=== PATIENT | male | born 1940 | race Caucasian/White ===

== ENCOUNTER 2017-08-20 05:15 | Emergency (ER) | payer MEDICARE ==
[2017-08-20 05:24] VITALS: BP 132/64
--- NOTE | 2017-08-20 06:53 | ED ---
Clayton Hartman Gabriel, scribed for Devyn Villafana MD on 08/20/17 at 0554 . Abdominal Pain/Male - HPI Summary HPI Summary: This patient is a 77 year old M presenting to [facility] accompanied by with a chief complaint of abd pain since earlier today. Pt states he usually gets constipated one or twice a year and take Mirilax for relief. Pt recently felt constipated 4 days ago and took a diuretic and had a diarrhea. Patient denies bloating, fever, sob, cp, and vomiting. - History of Current Complaint Chief Complaint: EDAbdPain Stated Complaint: ABD PAIN Time Seen by Provider: 08/20/17 05:44 Hx Obtained From: Patient Onset/Duration: Still Present Timing: Constant Severity Currently: None Pain Intensity: 0 Pain Scale Used: 0-10 Numeric Radiates: No Associated Signs And Symptoms: Positive: Negative - bloating, fever, sob, cp, and vomiting. - Allergies/Home Medications Allergies/Adverse Reactions: Allergies Allergy/AdvReac Type Severity Reaction Status Date / Time Ezetimibe [From Vytorin] Allergy Unknown Verified 08/20/17 05:34 Reaction Details Fenofibrate [From Tricor] Allergy Leg Cramps Verified 08/20/17 05:34 Penicillins Allergy Rash Verified 08/20/17 05:34 Simvastatin [From Vytorin] Allergy Unknown Verified 08/20/17 05:34 Reaction Details PMH/Surg Hx/FS Hx/Imm Hx Previously Healthy: No Cardiovascular History: Reports: Hx Congestive Heart Failure, Hx Hypercholesterolemia, Hx Hypertension, Hx Pacemaker/ICD - 8/10/15, Other Cardiovascular Problems/Disorders - LEFT BUNDLE BRANCH BLOCK Respiratory History: Reports: Hx Asthma - A CHILD ONLY Denies: Other Respiratory Problems/Disorders GI History: Denies: Other GI Disorders Musculoskeletal History: Reports: Hx Arthritis Denies: Other Musculoskeletal History Sensory History: Reports: Hx Cataracts - JUAN CARLOS, Hx Contacts or Glasses Denies: Hx Hearing Aid Opthamlomology History: Reports: Hx Cataracts - JUAN CARLOS, Hx Contacts or Glasses Neurological History: Denies: Other Neuro Impairments/Disorders - Surgical History Surgery Procedure, Year, and Place: JUAN CARLOS CATARACTS, 2013, [facility]UMBAR SURGERY, [facility], 2011, 2014. EAR GROWTH, [facility], 2009. DEVIATED SEPTUM, [facility],1994 Hx Anesthesia Reactions: No - Immunization History Date of Tetanus Vaccine: unk Date of Influenza Vaccine: 2017 Infectious Disease History: No Infectious Disease History: Denies: Traveled Outside the [place] in Last 30 Days - Family History Known Family History: Negative: Renal Disease - Social History Alcohol Use: Rare Alcohol Amount: 1 PER YEAR Hx Substance Use: No Substance Use Type: Reports: None Hx Tobacco Use: No Smoking Status (MU): Never Smoked Tobacco Have You Smoked in the Last Year: No Review of Systems Negative: Fever Negative: Chest Pain Negative: Shortness Of Breath Gastrointestinal: Negative - abd bloating Positive: Abdominal Pain. 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 Mucous membranes are mosit Neck: supple, non-tender Respiratory: CTA, breath sounds present Cardiovascular: RRR, pulses symmetrical Abdomen: non-tender, soft, no mass in abd Bowel: present and sounds are present Musculoskeletal: normal, strength/ROM intact Neuro: normal, sensory motor intact, A&Ox3 Rectal: Inflamed external hemorrhoid Triage Information Reviewed: Yes Vital Signs On Initial Exam: Initial Vitals Temp Pulse Resp BP Pulse Ox 97 F 88 16 132/64 98 08/20/17 05:19 08/20/17 05:19 08/20/17 05:19 08/20/17 05:19 08/20/17 05:19 Vital Signs Reviewed: Yes - [place] Coma Scale Coma Scale Total: 15 Diagnostics - Vital Signs Vital Signs Temp Pulse Resp BP Pulse Ox 08/20/17 05:19 97 F 88 16 132/64 98 - Laboratory Lab Statement: Any lab studies that have been ordered have been reviewed, and results considered in the medical decision making process. - Radiology abdomen xray Radiology Interpretation Completed By: ED Physician - constipation - Additional Comments Diagnostic Additional Comments: Bed side US reveals, abdominal aortic is 1.9cm and there is not a lot of gaseous abdomen distension. Abdominal Pain Fem Course/Dx - Course Assessment/Plan: No abdomenal pain, US negative for aaa, hard stool on rectal exam confirmed on KUB. Tx symptomatically with miralax. D/C in good condition. - Diagnoses Differential Diagnosis/HQI/PQRI: Constipation Provider Diagnoses: Constipation, acute Discharge - Discharge Plan Condition: Good Disposition: HOME Patient Education Materials: Constipation (ED) Referrals: Dav Hadley MD [Primary Care Provider] - Additional Instructions: high fiber diet. Take miralax up to 3 times daily. Exercise and massage will help. Return with fever, increased pain, new symptoms or other concerns. The documentation as recorded by the Clayton anderson Gabriel accurately reflects the service I personally performed and the decisions made by me, Devyn Villafana MD.
--- NOTE | 2017-08-20 08:23 | RAD ---
INDICATION: No bowel movement in days. COMPARISON: There are no prior studies available for comparison. TECHNIQUE: Frontal supine films of the abdomen were obtained. FINDINGS: The small bowel and colon appear nondistended. There is a large amount of stool present throughout the colon. No significant abnormal calcifications are seen. IMPRESSION: LARGE AMOUNT RETAINED STOOL.
== END 2017-08-20 06:53 | disposition home or self-care (01) ==
LOC: ED 05:15
DX: K59.00 Constipation, unspecified (principal); I50.9 Heart failure, unspecified; E78.00 Pure hypercholesterolemia, unspecified; I10 Essential (primary) hypertension; Z95.810 Presence of automatic (implantable) cardiac defibrillator; I44.7 Left bundle-branch block, unspecified
CPT/HCPCS: 74000; 99282

== ENCOUNTER 2019-09-09 08:26 | Observation (INO) | payer MEDICARE ==
--- OUTSIDE RECORDS SUMMARY | 2019-09-09 08:41 | XMS REPORT | Continuity of Care Document ---
:1940 External Reference #:[id number] Author Name Farshad Ruiz M.D. (transmitted by agent of provider Jannie Kinney) Address [address] [place] [address] Problems Active Problems Provider Date Dilated cardiomyopathy Farshad Ruiz M.D. Onset: 05/17/2015 Left bundle branch block Farshad Ruiz M.D. Onset: 05/17/2015 Syncope Farshad Ruiz M.D. Onset: 05/17/2015 Social History Type Date Description Comments Sex Unknown Tobacco Use Start: Unknown Never Smoked Cigarettes Smoking Status Reviewed: 08/10/19 Never Smoked Cigarettes ETOH Use Denies alcohol use Tobacco Use Start: Unknown Patient has never smoked Recreational Drug Use Denies Drug Use Exercise Type/Frequency Exercises rarely Allergies, Adverse Reactions, Alerts Active Allergies Reaction Severity Comments Date Penicillin per [facility] paper chart 03/08/2014 Vytorin muscle pains per [facility] paper chart 03/08/2014 Tricor muscle pains per [facility] paper chart 03/08/2014 Medications Active Medications SIG Qnty Indications Ordering Date Provider Enalapril Maleate 1/2 tablet by 90tabs Unknown 20mg Tablets mouth b.i.d Digoxin 1 tablet by 90tabs Unknown 250mcg Tablets mouth every day Aspirin 1 tablet by Farshad Fletcher 81mg Tablets DR mouth amarjit Ruiz M.D. day Nifedipine ER 1 by mouth Unknown 30mg Tablets ER 24HR every day Metoprolol Tartrate 1 by mouth Unknown 50mg Tablets twice a day Diclofenac Sodium 1 po twice Unknown 50mg Tablets DR daily Otezla take one Unknown 30mg Tablets tablet by mouth two times a day Hydrochlorothiazide 1 by mouth Unknown 25mg Tablets every day Immunizations CPT Code Status Date Vaccine Lot # [id number] Given 07/24/2014 Influenza Virus 3Yrs & Over Vital Signs Date Vital Result Comment 08/10/2019 3:03pm Height 71.5 inches 5'11.50" Weight 192.00 lb with shoes Heart Rate 82 /min BP Systolic Sitting 110 mmHg LA BP Diastolic Sitting 70 mmHg LA BP Systolic Standing 120 mmHg LA BP Diastolic Standing 70 mmHg LA BMI (Body Mass Index) 26.4 kg/m2 Ejection Fraction NONE 06/30/2018 11:38am Height 71.5 inches 5'11.50" Weight 199.00 lb with shoes Heart Rate 88 /min BP Systolic Sitting 110 mmHg Lue lg cuff BP Diastolic Sitting 60 mmHg Lue lg cuff BP Systolic Standing 110 mmHg Lue lg cuff BP Diastolic Standing 70 mmHg Lue lg cuff Respiratory Rate 16 /min BMI (Body Mass Index) 27.4 kg/m2 Results Description No Information Available Procedures Date Code Description Status 08/10/2019 70857 Interrogation Implant Cardiovasc Monitor System Incl Completed Analysis Int 08/10/2019 29726 Icd Eval With Inerative Adjustmt Dual Lead System Completed 08/10/2019 39495 EKG Tracing & Interpretation Completed 07/08/2019 50125 Interrogation Device Eval Remote Up To 30 Days Completed Analysis,Rev,RP 07/08/2019 66739 Interrogation Device Eval Remote Up To 30 Days Completed Analysis,Rev,RP 07/08/2019 03846 Icd Eval Sing,Dual,Multi Lead Remote Recpt Transm Tech Rev Completed Tech S 07/08/2019 82400 Icd Eval Sing,Dual,Multi Lead Remote Recpt Transm Tech Rev Completed Tech S 07/08/2019 51915 Icd Check Remote Up To 90 Days Single,Dual,Multiple Lead Completed 07/08/2019 22889 Icd Check Remote Up To 90 Days Single,Dual,Multiple Lead Completed 04/08/2019 76416 Interrogation Device Eval Remote Up To 30 Days Completed Analysis,Rev,RP 04/08/2019 51135 Interrogation Device Eval Remote Up To 30 Days Completed Analysis,Rev,RP 04/08/2019 74291 Icd Eval Sing,Dual,Multi Lead Remote Recpt Transm Tech Rev Completed Tech S 04/08/2019 76021 Icd Eval Sing,Dual,Multi Lead Remote Recpt Transm Tech Rev Completed Tech S 04/08/2019 16407 Icd Check Remote Up To 90 Days Single,Dual,Multiple Lead Completed 04/08/2019 42224 Icd Check Remote Up To 90 Days Single,Dual,Multiple Lead Completed Medical Devices Description No Information Available Encounters Description No Information Available Assessments Date Code Description Provider 08/10/2019 I42.9 Cardiomyopathy, unspecified Farshad Ruiz M.D. 08/10/2019 I42.9 Cardiomyopathy, unspecified [facility] Pacer Schedule 08/10/2019 Z95.810 Presence of automatic (implantable) cardiac Farshad Ruiz M.D. defibrillator 08/10/2019 Z95.810 Presence of automatic (implantable) cardiac [facility] Pacer Schedule defibrillator 08/10/2019 I50.9 Heart failure, unspecified [facility] Pacer Schedule 07/08/2019 I42.9 Cardiomyopathy, unspecified Farshad Ruiz M.D. 07/08/2019 I42.9 Cardiomyopathy, unspecified Remote Device Checks 07/08/2019 Z95.810 Presence of automatic (implantable) cardiac Farshad Ruiz M.D. defibrillator 07/08/2019 Z95.810 Presence of automatic (implantable) cardiac Remote Device Checks defibrillator 07/08/2019 I50.9 Heart failure, unspecified Farshad Ruiz M.D. 07/08/2019 I50.9 Heart failure, unspecified Remote Device Checks 04/08/2019 Z95.810 Presence of automatic (implantable) cardiac Farshad Ruiz M.D. defibrillator 04/08/2019 Z95.810 Presence of automatic (implantable) cardiac Remote Device Checks defibrillator 04/08/2019 I42.9 Cardiomyopathy, unspecified Farshad Ruiz M.D. 04/08/2019 I42.9 Cardiomyopathy, unspecified Remote Device Checks Plan of Treatment 08/10/2019 - Farshad Ruiz M.D.I42.9 Cardiomyopathy, unspecifiedFollow up:1 yearZ95.810 Presence of automatic (implantable) cardiac defibrillator Functional Status Description No Information Available Mental Status Description No Information Available Referrals Description No Information Available
--- NOTE | 2019-09-09 08:46 | ED ---
HPI Chest Pain - HPI Summary HPI Summary: This pt is an 79 y/o male presenting to [facility] c/o chest pain since 22:00 last night. He reports he was lying in bed when his chest pain began last night. Patient describes mid sternal chest pain radiating into his throat and constant sensation of burning pain. Pt notes he was belching and vomited today. He took gaviscon and pepto bismol with no relief. He reports associated symptoms of nausea, SOB, and dizziness. Denies headache, diarrhea. Pt notes a couple of days ago he ate a spicy dinner and last night for dinner he had a sub with salami. He reports he drove from [place] with his son 3 weeks ago. Pt has felt this chest pain in the past, about 10 years ago, and went to the hospital where he received Gaviscon liquid and was placed on Nexium. His riding silks custodian is Dr. Ruiz. His last stress test was a couple of years ago. PMHx: CHF (for the past 30 years), pacemaker/defibrillator. Pt takes a baby coated aspirin every day, but did not take it today. Pt reports during his last visit to his PCP his sugar was 160 and was placed on a new medication 2 weeks ago. Allergies to Penicillin. Denies tobacco, alcohol, or drug use. Pt is retired. Medications reviewed. Allergies noted. - History of Current Complaint Chief Complaint: EDChestPainROMI Time Seen by Provider: 09/09/19 08:38 Hx Obtained From: Patient Onset/Duration: Started Hours Ago, Still Present Timing: Lasting Hours Current Severity: Moderate Pain Intensity: 6 Pain Scale Used: 0-10 Numeric Chest Pain Location: Mid Sternal Chest Pain Radiates: Yes Chest Pain Radiates To:: Other - throat Character: Burning Aggravating Factor(s): Nothing Alleviating Factor(s): Nothing Associated Signs and Symptoms: Positive: Chest Pain, Dizziness, Shortness of Breath, Vomiting. Negative: Headaches, Fever - Allergy/Home Medications Allergies/Adverse Reactions: Allergies Allergy/AdvReac Type Severity Reaction Status Date / Time ezetimibe [From Vytorin] Allergy Unknown Verified 09/09/19 08:34 Reaction Details fenofibrate [From Tricor] Allergy Leg Cramps Verified 09/09/19 08:34 Penicillins Allergy Rash Verified 09/09/19 08:34 simvastatin [From Vytorin] Allergy Unknown Verified 09/09/19 08:34 Reaction Details Home Medications: Home Medications Apremilast (NF) [Otezla (NF)] 30 mg PO BID 09/09/19 [History Confirmed 09/09/19] Diclofenac Sodium EC TAB* [Voltaren EC TAB*] 50 mg PO DAILY 09/09/19 [History Confirmed 09/09/19] Hydrochlorothiazide TAB* [Hydrodiuril TAB*] 12.5 mg PO DAILY 09/09/19 [History Confirmed 09/09/19] Metformin ER (NF) [Glucophage ER 750 MG TAB (NF)] 750 mg PO DAILY 09/09/19 [ History Confirmed 09/09/19] Metoprolol Tartrate TAB* [Lopressor TAB*] 50 mg PO BID 09/09/19 [History Confirmed 09/09/19] PMH/Surg Hx/FS Hx/Imm Hx Cardiovascular History: Reports: Hx Congestive Heart Failure, Hx Hypercholesterolemia, Hx Hypertension, Hx Pacemaker/ICD - 8/07/05, Other Cardiovascular Problems/Disorders - LEFT BUNDLE BRANCH BLOCK Respiratory History: Reports: Hx Asthma - A CHILD ONLY Denies: Other Respiratory Problems/Disorders GI History: Denies: Other GI Disorders Musculoskeletal History: Reports: Hx Arthritis Denies: Other Musculoskeletal History Sensory History: Reports: Hx Cataracts - JUAN CARLOS, Hx Contacts or Glasses Denies: Hx Hearing Aid Opthamlomology History: Reports: Hx Cataracts - JUAN CARLOS, Hx Contacts or Glasses Neurological History: Denies: Other Neuro Impairments/Disorders - Surgical History Surgical History: Yes Surgery Procedure, Year, and Place: JUAN CARLOS CATARACTS, 2013, [facility]. LUMBAR SURGERY, [facility], 2011, 2014. EAR GROWTH, [facility], 2009. DEVIATED SEPTUM, [facility],1994 Hx Anesthesia Reactions: No - Immunization History Date of Tetanus Vaccine: unk Date of Influenza Vaccine: 2017 Infectious Disease History: No Infectious Disease History: Denies: Traveled Outside the [place] in Last 30 Days - Family History Known Family History: Negative: Renal Disease - Social History Occupation: Retired Alcohol Use: Rare Alcohol Amount: 1 PER YEAR Hx Substance Use: No Substance Use Type: Reports: None Hx Tobacco Use: No Smoking Status (MU): Never Smoked Tobacco Have You Smoked in the Last Year: No Review of Systems Negative: Fever Positive: Chest Pain Positive: Shortness Of Breath Positive: Vomiting, Nausea. Negative: Diarrhea Neurological: Other - POSITIVE: dizziness Negative: Headache All Other Systems Reviewed And Are Negative: Yes Physical Exam - Summary Physical Exam Summary: Constitutional: Well-developed, Well-nourished, Alert. (-) Distressed Skin: Warm, Dry HENT: Normocephalic; Atraumatic Eyes: Conjunctiva normal Neck: Musculoskeletal ROM normal neck. (-) JVD, (-) Stridor, (-) Tracheal deviation Cardio: Rhythm regular, rate normal, Heart sounds normal; Intact distal pulses; The pedal pulses are 2+ and symmetric. Radial pulses are 2+ and symmetric. (-) Murmur Pulmonary/Chest wall: Effort normal. (-) Respiratory distress, (-) Wheezes, (-) Rales Abd: Soft, (-) tenderness, (-) Distension, (-) Guarding, (-) Rebound Musculoskeletal: (-) Edema. Good pulses bilaterally in radius, No calf tenderness, No venous cords, No pain with dorsiflexion of foot. Lymph: (-) Cervical adenopathy Neuro: Alert, Oriented x3 Psych: Mood and affect Normal Triage Information Reviewed: Yes Vital Signs On Initial Exam: Initial Vitals Temp Pulse Resp BP Pulse Ox 97.7 F 79 16 118/65 99 09/09/19 08:27 09/09/19 08:27 09/09/19 08:27 09/09/19 08:27 09/09/19 08:27 Vital Signs Reviewed: Yes Procedures - Sedation Patient Received Moderate/Deep Sedation with Procedure: No Diagnostics - Vital Signs Vital Signs Temp Pulse Resp BP Pulse Ox 09/09/19 08:27 97.7 F 79 16 118/65 99 - Laboratory Result Diagrams: 09/09/19 08:42 09/09/19 08:42 Lab Statement: Any lab studies that have been ordered have been reviewed, and results considered in the medical decision making process. - Radiology Chest XR Radiology Interpretation Completed By: Radiologist Summary of Radiographic Findings: IMPRESSION: No active cardiopulmonary disease. Dr. Gutierrez has reviewed this report. - EKG 08:30 Cardiac Rate: NL - at 78 bpm EKG Comparison: Other - worse when compared to EKG on 10/02/11. Summary of EKG Findings: EKG at 0830 shows LBBB and periodically paced beats. ST elevations discordant in V1-V4, II, III, and aVF, which appears to be worse compared to EKG on 10/02/11. Chest Pain Course/Dx - Course Course Of Treatment: Patient is here with chest pain that radiates into his neck and started last night. Patient has some shortness of breath and an episode of vomiting with this. Patient has a paced rhythm at baseline with a left bundle branch block. Patient had an EKG performed which showed worsening ST depressions compared to his only prior EKG in our system from 2011. Cardial G was called and they do not think this represents a STEMI. Patient was performed which showed a mildly elevated troponin. Patient also has worsening kidney function likely due to recent metformin starting. Patient was given aspirin and nitroglycerin. Patient did become hypotensive after nitroglycerin but responded to 1 L of IV fluids. Patient was admitted to the hospitalist. - Diagnoses Provider Diagnoses: Chest pain, Elevated troponin, BRIAN (acute kidney injury), Heart failure, Leukocytosis - Provider Notifications Discussed Care Of Patient With: Nilo Joshua Time Discussed With Above Provider: 08:58 Instructed by Provider To: Other - Discussed case with Dr. Joshua, riding silks custodian , who agrees with my EKG interpretation but does not want to activate and just do blood work. [09:26] Spoke with Dr. Joshua who reports no Heparin. He found an EKG from 1 year ago and it looks exactly the same as today. [09:31] Discussed with Dr. Navas, hospitalist, Discharge ED - Sign-Out/Discharge Documenting (check all that apply): Patient Departure - Admit to [facility] - Discharge Plan Condition: Stable Disposition: ADMITTED TO [facility] - Billing Disposition and Condition Condition: STABLE Disposition: Admitted to [facility] - Attestation Statements Document Initiated by Matt: Yes Documenting Scribe: Regla Chandler Provider For Whom Deysiibe is Documenting (Include Credential): Kota Gutierrez MD Scribe Attestation: Regla Hartman, scribed for Kota Gutierrez MD on 09/09/19 at 1407. Scribe Documentation Reviewed: Yes Provider Attestation: The documentation as recorded by the Regla anderson accurately reflects the service I personally performed and the decisions made by me, Kota Gutierrez MD Status of Scribe Document: Viewed
[2019-09-09] MEDS ORDERED: Aspirin 81 mg CHEW TAB* 81 MG TAB.CHEW PO ONE (08:47)
[2019-09-09] MEDS ORDERED: Nitroglycerin TAB 0.4 MG* 0.4 MG TAB SL ONE (08:47)
[2019-09-09] MEDS ORDERED: Al Hydrox/Mg Hydrox/Simet LIQ* 30 ML UDC PO ONE (08:48)
[2019-09-09 08:51] LABS: ABS Lymphocytes 0.7 10^3/ul (1.0-4.8); ABS Monocytes 0.8 10^3/ul (0-0.8); ABS Neutrophils 17.9 10^3/ul (1.5-7.7); Hematocrit 45 % (42-52); Hemoglobin 15.2 g/dL (14.0-18.0); Lymphocyte % 3.8 %; Mean Corpuscular HGB Conc 34 g/dL (31-36); Mean Corpuscular Hemoglobin 30 pg (27-31); Mean Corpuscular Volume 89 fL (80-94); Platelet Count 239 10^3/uL (150-450); Red Blood Count 5.03 10^6 /uL (4.18-5.48); Red Cell Distribution Width 13 % (10-15); White Blood Count 19.5 10^3/uL (3.5-10.8)
[2019-09-09 08:59] LABS: INR 1.12 (0.82-1.09)
[2019-09-09 09:09] LABS: Anion Gap 18 mmol/L (2-11); Blood Urea Nitrogen 35 mg/dL (6-24); CO2 Carbon Dioxide 23 mmol/L (22-32); Chloride 96 mmol/L (101-111); Glucose 201 mg/dL (70-100); Potassium 4.7 mmol/L (3.5-5.0); Sodium 137 mmol/L (135-145)
[2019-09-09 09:10] LABS: ALT 43 U/L (7-52); AST 28 U/L (13-39); Albumin 4.6 g/dL (3.2-5.2); Albumin/Globulin Ratio 1.4 (1-3); Alkaline Phosphatase 50 U/L (34-104); BUN/Creatinine Ratio 15.9 (8-20); EGFR Non-African American 28.9 (>60); Globulin 3.3 g/dL (2-4); Total Protein 7.9 g/dL (6.4-8.9)
[2019-09-09] MEDS ORDERED: NS 0.9% 1000 ML** 500 ML IV ONE (09:11)
[2019-09-09 09:13] LABS: Troponin I 0.03 ng/mL (<0.03)
[2019-09-09 10:25] LABS: Digoxin 1.7 ng/ml (0.8-2.0)
[2019-09-09] MEDS ORDERED: Pantoprazole TAB * 40 MG TAB PO ONE (10:46)
[2019-09-09] MEDS ORDERED: Dextrose 50% VIAL 50 ml IV PUSH PRN (10:54)
[2019-09-09] MEDS ORDERED: Ondansetron INJ* 2 MG/ML VIAL IV PRN (10:56)
[2019-09-09] MEDS ORDERED: Ondansetron ODT TAB* 4 MG SL PRN (10:56)
[2019-09-09] MEDS ORDERED: Digoxin TAB* 0.25 MG PO SCH ×2 (11:00→21:00)
[2019-09-09] MEDS ORDERED: NS 0.9% 1000 ML** 1,000 ML IV SCH (11:00)
[2019-09-09] MEDS: Metoprolol Tartrate TAB* 25 MG PO SCH ×2 (11:01→17:39)
[2019-09-09] MEDS ORDERED: Morphine 4 MG/ML VIAL (1 ml) 4 MG/ML VIAL IV ONE (11:59)
[2019-09-09 12:00] LABS: Troponin I 0.03 ng/mL (<0.03)
[2019-09-09] MEDS ORDERED: Perflutren Lipid Microsphere* 3 ML VIAL ONE (12:59)
--- NOTE | 2019-09-09 13:06 | CONSULT ---
Subjective Date of Service: 09/09/19 Interval History: DATE OF ADMISSION and consult: 09/09/19 ADMITTING PROVIDER: Elmer Navas MD. PRIMARY CARE PROVIDER: Dr. Bob Pritchard. OUTPATIENT FINANCE LECTURER: Dr. Farshad Ruiz. CC: Chest pain Reason for consult: Chest pain HISTORY OF PRESENT ILLNESS: Milton Ortez is an 79-year-old man with a history as below. Here with Amelie. His presenting symptom was present in the past about 15 years ago that resolved with gaviscon and 1 month of nexium. He never had an endoscopy. He recently re-developed GERD symptoms after not having for awhile that was resolved with nexium but stopped taking consistently because packaging stated not to use over 2 weeks. Last night he developed severe substernal burning sharp like pain that radiated to neck that was at a baseline mild but every few minutes would have spikes of severe pain. He had several episodes of vomiting. His pain continues presently and only thing that has been given so far that has helped is morphine (received multiple GI meds). Pain is worse when laying down and better when sitting up. It is not pleuritic.. He did start nsaids regularly 3 weeks ago diclofenac 50 mg daily. Was recently started on metformin. SL NTG caused BP to drop to 69/49 and given IVF. He had a URI 3 weeks ago. 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 He wears a brace. Pmshx: ICD dual chamber laminectomy ALLERGIES: PENICILLINS (severe rash), SIMVASTATIN (unknown), FENOFIBRATE (leg cramps), EZETIMIBE (unknown). FAMILY HISTORY: His father of PR at age 75. Mother of PR at age 52. SOCIAL HISTORY: No tobacco use. No alcohol use. No drug use. Retired farming and plumbing. Medications Active Medications: Aspirin (Aspirin Ec Tab*) 81 mg PO DAILY MALIK Dextrose (Dextrose 50% Vial 50 Ml*) 25 ml IV PUSH .FOR FS < 60 - SS PRN PRN Reason: FS < 60 Sodium Chloride (Ns 0.9% 1000 Ml) 1,000 mls @ 100 mls/hr IV PER RATE MALIK Stop: 09/10/19 06:59 Insulin Human Lispro (Humalog*) 0 units SUBCUT [facility]; Protocol Metoprolol Tartrate (Lopressor Tab*) 25 mg PO Q8H [facility] Last Admin: 09/09/19 11:01 Dose: 25 mg Ondansetron HCl (Zofran Inj*) 4 mg IV Q6H PRN PRN Reason: NAUSEA Ondansetron HCl (Zofran Odt Tab*) 4 mg SL Q6H PRN PRN Reason: NAUSEA/VOMITING Simethicone (Mylicon Tab*) 80 mg PO [facility] Home Medications: Aspirin [Aspirin Adult Low Dose] 81 mg PO DAILY 04/09/15 [History Confirmed ] Digoxin [Digitek] 0.25 mg PO BEDTIME 04/09/15 [History Confirmed 09/09/19] Enalapril Maleate 20 mg PO DAILY 04/09/15 [History Confirmed 09/09/19] NIFEdipine [Procardia] 30 mg PO DAILY 04/09/15 [History Confirmed 09/09/19] Apremilast (NF) [Otezla (NF)] 30 mg PO BID 09/09/19 [History Confirmed 09/09/19] Diclofenac Sodium EC TAB* [Voltaren EC TAB*] 50 mg PO DAILY 09/09/19 [History Confirmed 09/09/19] Hydrochlorothiazide TAB* [Hydrodiuril TAB*] 12.5 mg PO DAILY 09/09/19 [History Confirmed 09/09/19] Metformin ER (NF) [Glucophage ER 750 MG TAB (NF)] 750 mg PO DAILY 09/09/19 [ History Confirmed 09/09/19] Metoprolol Tartrate TAB* [Lopressor TAB*] 50 mg PO BID 09/09/19 [History Confirmed 09/09/19] Review of Systems - Measurements Intake and Output: Intake and Output Last 24 Hours 09/07/19 09/08/19 09/09/19 09/10/19 06:59 06:59 06:59 06:59 Intake Total 500 Balance 500 Weight 193 lb Intake: IV Fluids 500 - Review of Systems Constitutional Symptoms: Negative: Weakness, Fatigue Dermatology: Negative: Rash, Skin Lesions HEENT: Negative: Change in Hearing, Vertigo Eyes: Negative: Change in Vision, Double Vision Thyroid: Negative: Cold Intolerance, Heat Intolerance, Palpitations, Change in Skin/ Hair Pulmonary: Negative: Cough, Sputum, Hemoptysis Cardiology: Positive: Chest Pain Negative: Palpitations, Swelling of Ankles, Peripheral Vascular Dis, Edema, Syncope, Claudication, Paroxysmal Nocturnal Dyspnea, Orthopnea Gastroenterology: Positive: Vomiting Negative: Haematemesis, Melena Genital - Urinary: Negative: Dysuria, Hematuria Musculoskeletal: Negative: Joint Pain, Joint Stiffness Endocrinology: Negative: Obesity, Diabetes, Polydipsia, Polyuria Hematologic/Lymphatic: Positive: Use of Antiplatelet Drugs Negative: Use of Anticoagulant Neurology: Positive: Hx of Stroke\TIA Negative: Change in Speech, Change in Sphincter Function, Change in Walking, Numbness\Paresthesiae, Unexplained Weakness, Hx Seizures Psychiatry: Negative: Unusual Anxiety, Suicidal Ideation Allergic/Immunologic: Negative: Hx HIV, Immunocompromise, Swollen Glands Lymph Nodes, Other Review of Systems Statement: All other review of systems negative, unless stated above. Objective Vital Signs: Temp Pulse Resp BP Pulse Ox 97.4 F 74 16 102/49 99 09/09/19 12:30 09/09/19 12:30 09/09/19 12:30 09/09/19 12:30 09/09/19 12:30 Oxygen Devices in Use Now: None Appearance: nad, pleasant Ears/Nose/Mouth/Throat: Clear Oropharnyx Neck: NL Appearance and Movements; NL JVP Respiratory: Symmetrical Chest Expansion and Respiratory Effort, Clear to Auscultation Cardiovascular: RRR, - - distant haert sounds, pacemaker left upper chest in place Abdominal: NL Sounds; No Tenderness; No Distention Extremities: No Edema Skin: No Rash or Ulcers Neurological: Alert and Oriented x 3 Laboratory Results: 09/09/19 08:42 09/09/19 08:42 INR (Anticoag Therapy) 1.12 (0.82-1.09) H 09/09/19 08:42 Total Bilirubin 0.50 mg/dL (0.2-1.0) 09/09/19 08:42 AST 28 U/L (13-39) 09/09/19 08:42 ALT 43 U/L (7-52) 09/09/19 08:42 Alkaline Phosphatase 50 U/L (34-104) 09/09/19 08:42 B-Natriuretic Peptide 209 pg/mL (<=100) H 09/09/19 08:42 Total Protein 7.9 g/dL (6.4-8.9) 09/09/19 08:42 Albumin 4.6 g/dL (3.2-5.2) 09/09/19 08:42 Globulin 3.3 g/dL (2-4) 09/09/19 08:42 Albumin/Globulin Ratio 1.4 (1-3) 09/09/19 08:42 09/09/19 09/09/19 08:42 11:05 Troponin I 0.03 H* 0.03 H* dig level 1.7 lactic acid 5.1 Diagnostic Imaging: Exam Date: 09/09/19 CHEST AP OR PORT IMPRESSION: NO ACTIVE CARDIOPULMONARY DISEASE. coronary artery disease with proximal RPDA 60% lesion, D1 branch with ostial 90 % lesion and middle was 40%. Normal left main, left circumflex and RCA. 04/09/15. Transthoracic Echocardiogram Study Date: 09/09/2019 Conclusions Summary: - Left ventricle: The cavity size is severely dilated. Wall thickness is mildly increased. Systolic function is severely reduced. The estimated ejection fraction is 10-15%. Mild diffuse hypokinesis with regional variations. - Right ventricle: The cavity size is normal. Pacer wire noted in the right ventricle. Systolic function is normal. - Ventricular septum: The interventricular septum appears dyssynchronous consistent with LBBB - Left atrium: The atrium is mildly dilated. - Mitral valve: There is trace regurgitation. Recommendations: Compared to prior echocardiogram from 05/2009 visual LVEF was 20-25% previously. 10 years later the left atrium remains only mildly dilated and trace mitral regurgitation. EKG Data: ekg this admission nsr vs. ap, lbbb morphology has looked similar to prior ekg' s from Dr. Young office Assessment/Plan Patient presents with undiagnosed chest pain. Echo shows no significant pericardial effusion. Ongoing unremitting chest pain for over 12 hours without a serial rise of troponin essentially excludes myocardial ischemia and no further evaluation for this is warranted at this time. GI related pain (which patient thinks is the cause) seems very possible at this point but not definite. Other than NSAID use, it is difficult to have a unifying diagnosis of his presenting symptom and BRIAN.. Metformin is held in setting of lactic acidosis. Once further stabilized would decrease his longstanding digoxin to 125 mcg po daily. Agree with holding all BP medications except metoprolol at this point.
[2019-09-09] MEDS ORDERED: Atorvastatin* 80 MG TAB PO ONE (13:08)
--- NOTE | 2019-09-09 13:35 | HP ---
HISTORY AND PHYSICAL: DATE OF ADMISSION: 09/09/19 ADMITTING PROVIDER: Elmer Navas MD. PRIMARY CARE PROVIDER: Dr. Bob Pritchard. OUTPATIENT SKI TECHNICIAN: Dr. Farshad Ruiz. CHIEF COMPLAINT: Chest pain radiating to the throat, nausea, vomiting, shortness of breath, and dizziness. HISTORY OF PRESENT ILLNESS: Milton Ortez is an 79-year-old male with past medical history of severe dilated cardiomyopathy for the last 30 years, psoriasis, hypertension, suspected prediabetes versus diabetes (recently being worked up), and occasional acid reflux type symptoms. The patient was in his normal state of health at 10 p.m. the night prior to admission when he developed severe pain in his substernal area that was burning, pressure-like, and sharp that radiated to his throat. He had 2 or 3 episodes of nausea and vomiting of some clear/brown fluid which may have contained some food. He was little bit dizzy, short of breath. He was up all night with similar symptoms and worse with lying down flat. There was an episode back 15 years ago when he was in [place] visiting his son which seemed similar in character and he was given a white liquid which immediately relieved the symptoms. These symptoms are more severe than that. At that time, he was on Nexium for 5 to 6 weeks and over the last few weeks, he has been taking Nexium intermittently for similar less intense symptoms. He about 3 weeks ago restarted his diclofenac 50 mg daily after a short break trialing CBD oil, which seemed to be effective initially and then wore off. This morning at [facility], he continues to have severe discomfort. Initial troponin was 0.03. He has baseline left bundle-branch block. He has evidence of acute kidney injury with creatinine of 2.2, up from 1.2 on 07/04/19. He had leukocytosis of 19.5, elevated calcium of 11.0 with correction of albumin 4.6, likely normal. Chest x-ray was normal. He was referred to hospitalist service for ACS rule out and further workup of his chest pain. He notably also had an anion gap of 18 and glucose of 201. He had recently been started on metformin on 08/16/19. He also got nitroglycerin sublingual tab and his blood pressures plummeted from 118/65 down to 69/49 and he was started on 500 cc normal saline bolus and this has rebounded to the 110s to 130s over 50s to 60s. He denies any cough, fevers, chills, abdominal pain, diarrhea. He did get a cold approximately 3 weeks ago with a cough, which has resolved about 1-1/2 to 2 weeks ago. He has been losing weight, though this was thought intentional because he has been using an extra size bike for the last 1 to 1-1/2 months, dropped from 198 to 193. He has never had an EGD before. He did try some Pepto-Bismol and Gaviscon (aluminum hydroxide/ magnesium carbonate) without any relief at all last night. He got a simethicone , aluminum hydroxide, magnesium hydroxide cocktail in the emergency room and also similarly had no relief. PAST MEDICAL HISTORY: 1. Severe cardiomyopathy, last EF that I can see documented was on his cardiac cath 04/09/15 with severe LV hypokinesis with EF of 15%. 2. He has coronary artery disease with proximal RPDA 60% lesion, D1 branch with ostial 90% lesion and middle was 40%. Normal left main, left circumflex and RCA. This was on 04/09/15. 3. Hypertension. 4. Prediabetes versus diabetes. 5. Psoriasis. 6. Intermittent GERD-like symptoms. 7. Right footdrop after 2 lumbar laminectomy surgeries. He wears a brace. MEDICATIONS: Include: 1. Digoxin 0.25 mg p.o. at bedtime. 2. Metformin 750 mg p.o. daily. 3. Hydrochlorothiazide 12.5 mg p.o. daily. 4. Otezla (apremilast) 30 mg p.o. b.i.d. 5. Metoprolol tartrate 50 mg p.o. b.i.d. 6. Aspirin 81 mg p.o. daily. 7. Enalapril 20 mg p.o. daily. 8. Diclofenac sodium 50 mg p.o. daily. 9. Nifedipine 30 mg p.o. daily. ALLERGIES: PENICILLINS (severe rash), SIMVASTATIN (unknown), FENOFIBRATE (leg cramps), EZETIMIBE (unknown). FAMILY HISTORY: His father of DC at age 75. Mother of DC at age 52. He has 3 maternal cousins all with CHF. He has no siblings. He has 1 biological and 1 adopted son, both healthy. SOCIAL HISTORY: The patient is a never smoker. No alcohol use. No drug use. 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 He desires to be a full code. His medical surrogate is Amelie Ortez, his , who is at the bedside. REVIEW OF SYSTEMS: A complete 14-point review of systems negative, except as per HPI. He denies any headache, rashes, or joint pains. PHYSICAL EXAMINATION GENERAL APPEARANCE: In no acute distress. VITAL SIGNS: Temperature 97.7, heart rate between 65 and 80, respiratory rate between 15 and 26, blood pressure 118/65; down to 66/49; now at 117/57. HEENT: Normocephalic, atraumatic. Pupils are equally round and reactive to light. Extraocular motions intact. No scleral icterus. LUNGS: Clear to auscultation bilaterally with no wheezing, rales, or rhonchi. CARDIOVASCULAR: Regular rate and rhythm. No murmurs, rubs, or gallops. ABDOMEN: Soft, nontender, slightly distended. No rebound. No guarding. No Kang's sign. EXTREMITIES: Warm, well perfused. No peripheral edema. NEURO: Cranial nerves II through XII grossly intact. SKIN: No lesions. No rashes. He is wearing a brace on his right lower leg for his footdrop. DIAGNOSTIC STUDIES/LAB DATA: Labs: White count 19.5, hemoglobin 15.2, hematocrit 45, platelets 239. INR 1.12. Sodium 137, potassium 4.7, carbon dioxide 23, BUN 35, creatinine 2.2, anion gap 18, calcium 11.0, glucose 201. Total bili 0.5, AST 20, ALT 43, alk phos 50. Troponin 0.03, BNP 209. Albumin 4.6. Digoxin 1.7. Chest x-ray demonstrated no acute cardiopulmonary process. EKG demonstrated left bundle-branch block as before. ASSESSMENT AND PLAN: Milton Ortez is an 79-year-old male with past medical history of: 1. Severe dilated cardiomyopathy, last EF approximately 15% on cath back in 2014, presenting with a severe substernal chest pain. He has both pressure- like burning and sharp that radiated to his throat, seems similar in character to his previous gastroesophageal reflux disease like sensations, but notably much more intense. He notably has recently restarted diclofenac about 3 weeks ago after a long break. His initial troponin was 0.03. He will be admitted for acute coronary syndrome rule out. He does have known coronary artery disease. His cholesterol in the past has actually been well controlled at 85 LDL and HDL 31 on 07/04/19. He is not on a statin. We will give him 80 of Lipitor now. He is status post 324 mg of aspirin and did not tolerate nitroglycerin sublingual tab, which tanked his blood pressures. Dr. Joshua was aware of the case from the emergency room provider and did not have any other recommendations after looking at the EKG. Could consider a stress test on 09/12 if the patient is still here versus outpatient. I am going to get an echocardiogram given his severe cardiomyopathy and no echo since at least 2014, which was a limited study that was just looking for pericardial effusion status post dual-chamber AICD placement, and also so that we can look for any regional wall motion abnormalities. 2. Acute kidney injury, likely in the setting of some dehydration with recent illness and increased NSAID use. He denies any problems with urination that is so frequent. Get urine sodium, urine creatinine, calculate FEUrea and FENa. Bladder scan p.r.n. especially if he is unable to void. We will follow up on the urinalysis. I am going to treat him with maintenance IV fluids 100 cc an hour of normal saline for the next 20 hours. Repeat BMP daily. He did have a recent abdominal ultrasound on 11/17/18 which was limited and did show echogenic liver consistent with hepatic steatosis. The right kidney was also seen with no hydronephrosis at that time. We could consider repeat kidney ultrasound depending on clinical course. 3. Leukocytosis with elevated white count of 19.5 with a left shift. Add on blood cultures. He has no other signs of sepsis, although his tanking of his blood pressures after the nitroglycerin is a little concerning. Awaiting on urinalysis to rule out a urinary tract infection. Hold off on any empiric antibiotics at this time. 4. Hypertension. I am going to hold his hydrochlorothiazide, enalapril, and nifedipine for now. Continue metoprolol tartrate, but switch to 25 q.8 hours instead of his 50 b.i.d. Keep a close eye on his blood pressures. 5. For his psoriasis, I am going to hold his Otezla for now as it could sometimes cause nausea and vomiting, though he has been on it for 18 months and low suspicion. 6. Also, for coronary artery disease, I am going to continue aspirin 81 mg daily. 7. In terms of suspected gastroesophageal reflux disease, we can start Protonix. Continue simethicone with each meal. He should probably have an outpatient GI consultation with consideration for EGD if symptoms are not improved with PPI therapy. Notably, he had run out of his Pepcid after taking it more often over the last few weeks in the setting of recently restarting NSAID. 8. FEN: He can eat a clear liquid diet. IV fluids as above. I am going to add on a magnesium level. Potassium is replete, not hyperkalemic. 9. Also, suspected diabetes mellitus versus prediabetes. Adding on A1c and fingerstick q.a.c. and h.s. with lispro sliding scale. He does have an elevated anion gap. Look for any ketones in urinalysis. I am also adding on a lactic acid, which has not been obtained yet. 10. Code status. Full. Medical surrogate is his , Amelie. He is going to be on telemetry service given his chest pain. We are trending troponins q.3 hours and will get another EKG with any worsening of the chest pain. [id number]/[facility] #: [id number] DIEGO
[2019-09-09] MEDS: Insulin LISPRO* 1 UNITS UNIT SUBCUT SCH ×3 (13:48→20:41)
[2019-09-09] MEDS: Simethicone TAB* 80 MG TAB.CHEW PO SCH ×2 (13:49→17:39)
[2019-09-09 13:56] LABS: C Reactive Protein 12.21 mg/L (<8.01)
[2019-09-09 14:19] LABS: Urine Appearance Cloudy; Urine Bilirubin Negative (Negative); Urine Blood Negative (Negative); Urine Color Amber; Urine Glucose Negative (Negative); Urine Ketones Trace (Negative); Urine Nitrite Negative (Negative); Urine Protein 1+(30 mg/dL) (Negative); Urine Specific Gravity 1.021 (1.010-1.030); Urine Urobilinogen Negative (Negative)
[2019-09-09 14:21] LABS: Urine Bacteria Absent (Absent); Urine Red Blood Cell 1+(3-5/hpf) (Absent); Urine Squamous Epithelial Cell Present (Absent); Urine White Blood Cell 2+(11-20/hpf) (Absent)
[2019-09-09 14:38] LABS: Troponin I 0.03 ng/mL (<0.03)
[2019-09-09 14:46] LABS: Urine Creatinine Concentration 350.1 mg/dL
--- NOTE | 2019-09-09 15:28 | ECHO ---
*[facility]* [place] [address] Fax #: [phone] Transthoracic Echocardiogram Patient: Milton Ortez : 1940 Study Date: 09/09/2019 Age: 79 Gender: M HR: 81 bpm Height: 71 in /180.3 cm BSA: 2.08 m^2 Weight: 192.6 lb /87.5 kg BMI: 26.9 kg/m^2 *Water Systems Designer: Kacy Kent [facility] *Referring Physician: * Elmer Navas *Reading Physician: * Nilo Joshua MD Indications: Chest Pain, unspecified. SOB. History: PMH: Cardiomyopathy. Labs, prior tests, procedures, and surgery: ICD system implantation. Conclusions Summary: - Left ventricle: The cavity size is severely dilated. Wall thickness is mildly increased. Systolic function is severely reduced. The estimated ejection fraction is 10-15%. Mild diffuse hypokinesis with regional variations. - Right ventricle: The cavity size is normal. Pacer wire noted in the right ventricle. Systolic function is normal. - Ventricular septum: The interventricular septum appears dyssynchronous consistent with LBBB - Left atrium: The atrium is mildly dilated. - Mitral valve: There is trace regurgitation. Recommendations: Compared to prior echocardiogram from 05/2009 visual LVEF was 20-25% previously. 10 years later the left atrium remains only mildly dilated and trace mitral regurgitation. Study data: Transthoracic echocardiogram. Procedure: Transthoracic echocardiography was performed. Image quality was fair. Intravenous Definity , 2 mlswas administered. Complete 2D, spectral Doppler, and color flow Doppler. Location: Bedside. Patient status: Inpatient. Patient room number: 445 01. Rhythm: Normal sinus rhythm. Findings Left ventricle: The cavity size is severely dilated. Wall thickness is mildly increased. Systolic function is severely reduced. The estimated ejection fraction is 10-15%. Mild diffuse hypokinesis with regional variations. Doppler parameters are consistent with abnormal left ventricular relaxation (grade 1 diastolic dysfunction). Right ventricle: The cavity size is normal. Pacer wire noted in the right ventricle. Systolic function is normal. Ventricular septum: The interventricular septum appears dyssynchronous consistent with LBBB Left atrium: The atrium is mildly dilated. Right atrium: The atrium is normal in size. Pacer wire noted in right atrium. Mitral valve: The leaflets are mildly thickened. There is no evidence of stenosis. There is trace regurgitation. Aortic valve: The valve is trileaflet. The leaflets are mildly thickened. There is no evidence of stenosis. There is no significant regurgitation. Tricuspid valve: The leaflets are normal thickness. There is no evidence of stenosis. There is trace regurgitation. Pulmonic valve: The leaflets are normal thickness. There is no evidence of stenosis. There is no significant regurgitation. Aorta: The aortic root appears normal. The aortic arch appears normal. Pericardium: There is no significant pericardial effusion. Pulmonary arteries: Systolic pressure is at the upper limits of normal. Systemic veins: Inferior vena cava: The vessel is normal in size. There is (< 50%) respiratory change in the IVC dimension. Measurements Left ventricle Value Ref Aortic valve continued Value Ref NATHANIEL, LAX (H) 6.8 cm 4.2 - 5.8 VTI, S 25.2 cm ----- ESD, LAX (H) 6.9 cm 2.5 - 4.0 Mean grad, S 4.0 mm Hg ----- FS, LAX (L) -2 % 25 - 43 Peak grad, S 8.0 mm Hg ----- PW, ED, LAX (H) 1.1 cm 0.6 - 1.0 EF (L) -5 % 52 - 72 Mitral valve Value Ref E', lat corinne, TDI (L) 7.9 cm/sec >=10.0 Peak E 0.42 m/sec ----- E/e', lat corinne, 5 Peak A 0.94 m/sec --- -- TDI Decel time 166 ms ----- E', med corinne, TDI (L) 5.5 cm/sec >=7.0 Mean grad, D 2.0 mm Hg ----- E/e', med corinne, 8 Peak grad, D 5.0 mm Hg --- -- TDI Peak E/A ratio 0.5 ----- E', avg, TDI 6.7 cm/sec E/e', avg, TDI 6 <=14 Pulmonic valve Value Ref Peak v, S 1.4 m/sec ----- LVOT Value Ref Peak grad, S 8.0 mm Hg ----- Peak lio, S 0.98 m/sec Mean grad, S 2 mm Hg Tricuspid valve Value Ref TR peak v 2.5 m/sec <=2.8 Ventricular septum Value Ref Peak RV-RA grad, S 25 mm Hg ----- IVS, ED (H) 1.2 cm 0.6 - 1.0 Aortic root Value Ref Right ventricle Value Ref Root diam 3.4 cm <4.2 NATHANIEL, LAX 1.9 cm NATHANIEL minor ax, A4C 2.8 cm 1.9 - 3.5 Ascending aorta Value Ref mid AAo AP diam, S 3.3 cm ----- Pressure, S 33 mm Hg AAo AP diam/bsa, S 1.6 cm/m^2 ----- Left atrium Value Ref Aortic arch Value Ref AP dim, ES 3.50 cm 3.00 - Arch diam 3.0 cm ----- 4.00 ML dim, A4C 4.1 cm Decending aorta Value Ref SI dim, A4C 5.4 cm Cynthia peak lio 0.56 m/sec ----- Vol/bsa, ES, A/L (H) 38 ml/m^2 16 - 34 Pulmonary artery Value Ref Right atrium Value Ref Pressure, S 25.0 mm Hg ----- SI dim, ES 5.2 cm 3.4 - 5.3 ML dim, ES, A4C 3.7 cm 2.6 - 4.4 Inferior vena cava Value Ref Estimated RAP 8 mm Hg Diam 1.5 cm ----- Aortic valve Value Ref Corinne diam, ED 2.3 cm Peak v, S 1.39 m/sec Legend: (L) and (H) moises values outside specified reference range. Prepared and electronically signed by Nilo Joshua MD 09/09/2019 15:28
[2019-09-09] MEDS ORDERED: cefTRIAXone(*) 1 GM in NS 0.9% 50 ML* 50 ML IVPB SCH (17:00)
[2019-09-09] MEDS ORDERED: NS 0.9% 1000 ML** 1,000 ML IV ONE (18:10)
[2019-09-10] MEDS: Metoprolol Tartrate TAB* 25 MG PO SCH (03:50)
[2019-09-10 06:45] LABS: ABS Eosinophils 0.1 10^3/ul (0-0.6); ABS Lymphocytes 1.2 10^3/ul (1.0-4.8); ABS Monocytes 1.2 10^3/ul (0-0.8); ABS Neutrophils 9.7 10^3/ul (1.5-7.7); Eosinophil % 0.8 %; Hematocrit 34 % (42-52); Hemoglobin 11.6 g/dL (14.0-18.0); Lymphocyte % 9.5 %; Mean Corpuscular HGB Conc 35 g/dL (31-36); Mean Corpuscular Hemoglobin 31 pg (27-31); Mean Corpuscular Volume 88 fL (80-94); Platelet Count 154 10^3/uL (150-450); Red Cell Distribution Width 13 % (10-15); White Blood Count 12.2 10^3/uL (3.5-10.8)
[2019-09-10 06:55] LABS: BUN/Creatinine Ratio 30.8 (8-20); Calcium 8.4 mg/dL (8.6-10.3); EGFR African American 57.6 (>60); EGFR Non-African American 47.6 (>60); Potassium 4.7 mmol/L (3.5-5.0)
[2019-09-10 07:17] LABS: Digoxin 1.3 ng/ml (0.8-2.0)
[2019-09-10] MEDS: Simethicone TAB* 80 MG TAB.CHEW PO SCH ×2 (07:58→11:15)
[2019-09-10] MEDS: Insulin LISPRO* 1 UNITS UNIT SUBCUT SCH ×2 (07:58→12:04)
--- NOTE | 2019-09-10 08:57 | PN ---
Subjective Date of Service: 09/10/19 Interval History: f/u chest pain, BRIAN - renal function improved - only has pain now when swallows supporting GI cause - no shortness of breath Medications Active Medications: Aspirin (Aspirin Ec Tab*) 81 mg PO DAILY [facility] Last Admin: 09/10/19 07:58 Dose: 81 mg Dextrose (Dextrose 50% Vial 50 Ml*) 25 ml IV PUSH .FOR FS < 60 - SS PRN PRN Reason: FS < 60 Ceftriaxone Sodium 1 gm/ (Sodium Chloride) 50 mls @ 100 mls/hr IVPB Q24H [facility] Last Admin: 09/09/19 17:39 Dose: 100 mls/hr Insulin Human Lispro (Humalog*) 0 units SUBCUT [facility]; Protocol Last Admin: 09/10/19 07:58 Dose: Not Given Ondansetron HCl (Zofran Inj*) 4 mg IV Q6H PRN PRN Reason: NAUSEA Ondansetron HCl (Zofran Odt Tab*) 4 mg SL Q6H PRN PRN Reason: NAUSEA/VOMITING Simethicone (Mylicon Tab*) 80 mg PO AC [facility] Last Admin: 09/10/19 07:58 Dose: Not Given Objective Vital Signs: Temp Pulse Resp BP Pulse Ox 97.8 F 85 21 126/55 100 09/10/19 03:36 09/10/19 03:36 09/10/19 03:36 09/10/19 03:36 09/10/19 03:36 Oxygen Devices in Use Now: None Appearance: nad, pleasant Respiratory: Symmetrical Chest Expansion and Respiratory Effort Cardiovascular: RRR Abdominal: NL Sounds; No Tenderness; No Distention Extremities: No Edema Skin: No Rash or Ulcers Neurological: Alert and Oriented x 3 Laboratory Results: 09/10/19 06:27 09/10/19 06:27 INR (Anticoag Therapy) 1.12 (0.82-1.09) H 09/09/19 08:42 Total Bilirubin 0.50 mg/dL (0.2-1.0) 09/09/19 08:42 AST 28 U/L (13-39) 09/09/19 08:42 ALT 43 U/L (7-52) 09/09/19 08:42 Alkaline Phosphatase 50 U/L (34-104) 09/09/19 08:42 B-Natriuretic Peptide 209 pg/mL (<=100) H 09/09/19 08:42 Total Protein 7.9 g/dL (6.4-8.9) 09/09/19 08:42 Albumin 4.6 g/dL (3.2-5.2) 09/09/19 08:42 Globulin 3.3 g/dL (2-4) 09/09/19 08:42 Albumin/Globulin Ratio 1.4 (1-3) 09/09/19 08:42 09/09/19 09/09/19 09/09/19 08:42 11:05 14:06 Troponin I 0.03 H* 0.03 H* 0.03 H* dig level 1.3 Diagnostic Imaging: Exam Date: 09/09/19 CHEST AP OR PORT IMPRESSION: NO ACTIVE CARDIOPULMONARY DISEASE. coronary artery disease with proximal RPDA 60% lesion, D1 branch with ostial 90 % lesion and middle was 40%. Normal left main, left circumflex and RCA. 04/09/15. Transthoracic Echocardiogram Study Date: 09/09/2019 Conclusions Summary: - Left ventricle: The cavity size is severely dilated. Wall thickness is mildly increased. Systolic function is severely reduced. The estimated ejection fraction is 10-15%. Mild diffuse hypokinesis with regional variations. - Right ventricle: The cavity size is normal. Pacer wire noted in the right ventricle. Systolic function is normal. - Ventricular septum: The interventricular septum appears dyssynchronous consistent with LBBB - Left atrium: The atrium is mildly dilated. - Mitral valve: There is trace regurgitation. Recommendations: Compared to prior echocardiogram from 05/2009 visual LVEF was 20-25% previously. 10 years later the left atrium remains only mildly dilated and trace mitral regurgitation. EKG Data: ekg this admission nsr vs. ap, lbbb morphology has looked similar to prior ekg' s from Dr. Young office Assessment/Plan All evidence points toward GI pain Other than NSAID use, it is difficult to have a unifying diagnosis of his presenting symptom and BRIAN. Would consider tramadol use at discharge. Metformin is held in setting of lactic acidosis. Can change metoprolol back to home 50 mg po bid (ordered) Once further stabilized would decrease his longstanding digoxin to 125 mcg po daily.
[2019-09-10] MEDS ORDERED: Metoprolol Tartrate TAB* 50 mg PO SCH (09:00)
[2019-09-10] MEDS ORDERED: Aspirin EC TAB* 81 MG TAB.EC PO SCH (09:00)
--- NOTE | 2019-09-10 10:24 | PN ---
Subjective Date of Service: 09/10/19 Interval History: Mr. Ortez is doing well today. He has had no further chest pain. He does complain of a sore throat which he describes as feeling like he pulled a muscle. It only hurts when he swallows. He says that he has to "take it easy" and chew his food well but it is not preventing him from eating. He denies nausea or vomiting. He has been having frequent but non-sustained hiccoughs. Objective Active Medications: Aspirin (Aspirin Ec Tab*) 81 mg PO DAILY [facility] Dextrose (Dextrose 50% Vial 50 Ml*) 25 ml IV PUSH .FOR FS < 60 - SS PRN Ceftriaxone Sodium 1 gm/ (Sodium Chloride) 50 mls @ 100 mls/hr IVPB Q24H [facility] Insulin Human Lispro (Humalog*) 0 units SUBCUT [facility]; Protocol Metoprolol Tartrate (Lopressor Tab*) 50 mg PO BID [facility] Ondansetron HCl (Zofran Inj*) 4 mg IV Q6H PRN Ondansetron HCl (Zofran Odt Tab*) 4 mg SL Q6H PRN Simethicone (Mylicon Tab*) 80 mg PO AC [facility] Vital Signs: Temp Pulse Resp BP Pulse Ox 98.4 F 82 16 111/54 97 09/10/19 07:15 09/10/19 07:15 09/10/19 07:15 09/10/19 07:15 09/10/19 07:15 Oxygen Devices in Use Now: None Appearance: Male lying in bed in NAD Eyes: No Scleral Icterus Ears/Nose/Mouth/Throat: Mucous Membranes Moist Neck: Trachea Midline Respiratory: Symmetrical Chest Expansion and Respiratory Effort, Clear to Auscultation Cardiovascular: NL Sounds; No Murmurs; No JVD, No Edema Abdominal: NL Sounds; No Tenderness; No Distention Extremities: No Edema Skin: No Rash or Ulcers Neurological: Alert and Oriented x 3, NL Muscle Strength and Tone Nutrition: Taking PO's Result Diagrams: 09/10/19 06:27 09/10/19 06:27 Assess/Plan/Problems-Billing Assessment: Ms. Ortez is an 79 M with a PMH of severe dilated cardiomyopathy with EF 15%, CAD, recent dx of diabetes, and GERD who was admitted on 09/09/19 with chest pain, acute kidney injury, leukocytosis, and hyperglycemia. - Patient Problems (1) Chest pain Comment: - Suspected due to GERD - Trops unchanged at 0.03, EF 10-15%, no evidence of pericardial effusion - Appreciate cardiology consult, no further evaluation needed (2) GERD (gastroesophageal reflux disease) Status: Acute Comment: - Start protonix daily - Recommend close follow up with GI. Patient aware and will call Thursday for an appt. (3) Leukocytosis Comment: - Resolved - Afebrile, ESR and CRP essentially negative for acute infection. - UA negative, cxray negative, BC no growth (4) Lactic acidosis Comment: - Hold metformin until follow up with PCP - Did have transient hypotension after nitroglycerin which could explain this elevation. No other cause identified (5) CAD (coronary artery disease) Comment: - Continue metoprolol, aspirin, statin (6) Acute kidney injury Comment: - Resolving with IVF - Suspected due to dehydration and NSAID use (7) Systolic CHF Comment: - EF 10-15% - Decrease Digoxin per recommendations from cardiology (8) Diabetes Comment: - Recently started on metformin outpatient (9) DVT prophylaxis (10) Full code status
[2019-09-10] MEDS ORDERED: Pantoprazole TAB * 40 MG TAB PO SCH (11:00)
[2019-09-10 11:17] VITALS: BP 116/54
--- NOTE | 2019-09-10 23:26 | DS ---
CC: Dr. Pritchard; Dr. Gibson* [facility] MEDICINE DISCHARGE SUMMARY: DATE OF ADMISSION: 09/09/19 DATE OF DISCHARGE: 09/10/19 PRIMARY CARE PHYSICIAN: Dr. Pritchard MANAGER INTELLIGENCE: Dr. Gibson. ATTENDING PHYSICIAN: Dr. Cadence De La Rosa* (dictation provided by Eda Crisostomo NP) . PRIMARY DIAGNOSES: 1. Chest pain with suspected gastrointestinal etiology with potential gastroesophageal reflux disease. 2. Leukocytosis. 3. Lactic acidosis. 4. Acute kidney injury. SECONDARY DIAGNOSES: 1. History of gastroesophageal reflux disease. 2. Severe cardiomyopathy, last ejection fraction 15%. 3. History of coronary artery disease with proximal right posterior descending artery 60% lesion, D1 branch with ostial 90% lesion and middle 40% lesion from 2015. 4. Hypertension. 5. Prediabetes versus diabetes. 6. Psoriasis. 7. Right foot drop after 2 lumbar laminectomy surgeries. MEDICATIONS OUTPATIENT: The patient has been instructed to hold his nifedipine, enalapril, and hydrochlorothiazide given acute kidney injury here in the hospital. His blood pressure has been well controlled off these medications running 110 to 130 systolically. He is also going to be decreasing digoxin from 250 mcg to 125 mcg daily. We are adding Protonix 40 mg p.o. daily. Remainder of his medications are: 1. Otezla 30 mg p.o. b.i.d. 2. Metoprolol tartrate 50 mg p.o. b.i.d. 3. Aspirin 81 mg p.o. daily. 4. Simethicone 80 mg p.o. q.a.c. Please note he is also holding metformin. HOSPITAL COURSE: Mr. Ortez is an 79-year-old male with a past medical history of severe cardiomyopathy with a known ejection fraction of 15% as well as intermittent GERD, who presented to the hospital on 09/09/19 with concern for chest pain. Please see dictated H and P from Dr. Navas for complete details. In brief, the patient stated that he developed severe pain substernally with burning, pressure like, and sharp pain that radiated into his throat. He had nausea and vomiting. He felt this was very similar to an episode of GI distress that he has experienced approximately 15 years ago. He had been on Nexium, but stopped taking it for some time. He had also recently started diclofenac. In the emergency room, Mr. Sanchez had a troponin which was 0.03, repeat troponins were all 0.03. Again EKG which showed no evidence of ischemia. He had a transthoracic echocardiogram, did show that his left ventricle is severely dilated with an ejection fraction of 10% to 15%. He had a chest x-ray , showed no active cardiopulmonary disease. The remainder of his workup showed that he had leukocytosis with a white blood cell count of 19.5. He is afebrile. His ESR is 24, CRP is 12.21. His urinalysis showed no evidence of infection. His blood cultures have shown no growth thus far. He had a lactic acidosis with a lactic acid of 5.6. This was repeated multiple times. Most recent check last evening, at which time it was 3.2. He has had an acute kidney injury with a BUN of 35 and creatinine 2.20. Mr. Ortez was admitted to the hospital. He, while in the ED, did have nitroglycerin for his chest pain and this transiently dropped his blood pressure into the 60s. He recovered well with 500 mL fluid bolus and has a normal blood pressure since. Again, he had troponins trended, which were steady at 0.03. He had a cardiology consultation with Dr. Joshua and I refer you to his note for complete details, but in brief, he suspected that the patient's symptoms were GI in origin based on his negative workup and that no further cardiac testing was indicated. He did recommend that the patient decrease his Digoxin from 250 mcg daily to 125 mcg daily. For his lactic acidosis, we did hydrate and hold his metformin, suspicion is that this may be related to his metformin with acute kidney injury or transient hypotension and I am encouraging him to follow up closely with his primary care physician Dr. Pritchard regarding recheck and consideration whether or not metformin should be resumed. In terms of his leukocytosis, he did remain afebrile and asymptomatic and showed no evidence of infection. His acute kidney injury resolved with intravenous fluids. His BUN is 44 with creatinine of 1.43, which is near his baseline. Mr. Ortez is medically stable for discharge to home. We have held multiple blood pressure medications while he is here, specifically his nifedipine, enalapril, and hydrochlorothiazide both for his episode of hypotension and his elevated BUN/creatinine. His blood pressure has been well controlled off these agents and I have recommended that he continue to hold them until he can follow up with Dr. Pritchard as outpatient. He has been recommended to check his blood pressure either at home or at [facility] in the interim if he is able to do that and to provide those readings to Dr. Pritchard. If his blood pressure is greater than 150 systolically or 100 diastolically, I have asked that he follow up with the nurse at Dr. Pritchard' office for further recommendations. Mr. Ortez is chest pain-free. He has had a sensation that his throat is sore but only when he swallows. He has been able to tolerate oral intake well though. I have recommended that he start Protonix daily and that he follow closely with Dr. Gibson for further evaluation. Mr. Ortez is stable for discharge home. DISCHARGE DISPOSITION: Home. DIET: Heart, low fat, low salt, low carb. ACTIVITY: As tolerated. FOLLOWUP PLAN: Please follow up with Dr. Pritchard within the next week regarding this hospitalization and continue adjustment of medications for medical optimization. Please follow up with Dr. Gibson regarding the sensation of mild difficulty with swallowing, GERD. TIME SPENT: Approximately 60 minutes were spent on the discharge of this patient, more than half the time spent with the patient at the bedside reviewing the events leading up to this hospitalization and during this hospitalization, performing the physical examination, and reviewing my plan of care. EDA CRISOSTOMO NP [id number]/[facility] #: [id number] DIEGO
== END 2019-09-10 15:35 | disposition home or self-care (01) ==
LOC: ED 08:26 → MEDTELE 10:46
PROVIDERS: ADMIT Internal Medicine; ATTEND Internal Medicine
DX: R07.9 Chest pain, unspecified (principal); D72.829 Elevated white blood cell count, unspecified; E87.2 Acidosis; N17.9 Acute kidney failure, unspecified; K21.9 Gastro-esophageal reflux disease without esophagitis; I42.9 Cardiomyopathy, unspecified; I25.10 Atherosclerotic heart disease of native coronary artery without angina pectoris; I10 Essential (primary) hypertension; R73.03 Prediabetes; L40.9 Psoriasis, unspecified; M21.371 Foot drop, right foot; Z79.82 Long term (current) use of aspirin; Z79.899 Other long term (current) drug therapy; R06.02 Shortness of breath
CPT/HCPCS: 36415; 71045; 80048; 80053; 80162; 81003; 81015; 82570; 83605; 83880; 84300; 84484; 84540; 85025; 85610; 85652; 86140; 87040; 87086; 93005; 93306; 96361; 96365; 96366; 96375; 99285; A9270-GY; C8929; G0378; J0696; J2270

== ENCOUNTER 2021-08-11 20:16 | Inpatient (IN) ==
[2021-08-11] MEDS ORDERED: Amiodarone 150 mg IVPREMIX 150 MG/100 ML BAG IV ONE (20:33)
[2021-08-11] MEDS ORDERED: Magnesium Sulfate IV 1GM/100ML 1 GM/100 ML BAG IV ONE (20:34)
[2021-08-11] MEDS ORDERED: NS 0.9% 1000 ml BAG 1,000 ML IV ONE (20:35)
[2021-08-11 20:49] LABS: ABS Basophils 0.1 10^3/ul (0-0.2); ABS Eosinophils 0.1 10^3/ul (0-0.6); ABS Lymphocytes 1.8 10^3/ul (1.0-4.8); ABS Monocytes 0.6 10^3/ul (0-0.8); ABS Neutrophils 6.7 10^3/ul (1.5-7.7); Eosinophil % 1.4 %; Hematocrit 39 % (42-52); Hemoglobin 13.2 g/dL (14.0-18.0); Lymphocyte % 19.6 %; Mean Corpuscular HGB Conc 34 g/dL (31-36); Mean Corpuscular Hemoglobin 30 pg (27-31); Mean Corpuscular Volume 89 fL (80-94); Mean Platelet Volume 9.3 fL (7.4-10.4); Platelet Count 202 10^3/uL (150-450); Red Blood Count 4.39 10^6 /uL (4.18-5.48); Red Cell Distribution Width 14 % (10-15); White Blood Count 9.4 10^3/uL (3.5-10.8)
[2021-08-11 20:59] LABS: INR 1.19 (0.86-1.15)
[2021-08-11 21:03] LABS: ALT 12 U/L (7-52); AST 17 U/L (13-39); Albumin 4.5 g/dL (3.2-5.2); Albumin/Globulin Ratio 1.5 (1-3); Alkaline Phosphatase 50 U/L (35-149); Anion Gap 11 mmol/L (2-11); Blood Urea Nitrogen 27 mg/dL (6-24); CO2 Carbon Dioxide 21 mmol/L (22-32); Calcium 9.8 mg/dL (8.6-10.3); Chloride 106 mmol/L (101-111); Globulin 3.1 g/dL (2-4); Glucose 171 mg/dL (70-100); Potassium 3.9 mmol/L (3.5-5.0); Sodium 138 mmol/L (135-145); Total Protein 7.6 g/dL (6.4-8.9)
[2021-08-11 21:34] LABS: Magnesium 1.9 mg/dL (1.9-2.7)
[2021-08-11 21:40] LABS: CKMB ng/mL 5.3 ng/mL (0.6-6.3)
[2021-08-11] MEDS ORDERED: .Amiodarone 24HR ONLY IV Protocol Order Note IV ONE (21:57)
[2021-08-11] MEDS ORDERED: Amiodarone 360 MG IVPREMIX 360 MG/200 ML BAG IV SCH (22:10)
[2021-08-11] MEDS: Amiodarone 360 MG IVPREMIX 360 MG/200 ML BAG IV SCH (22:25)
[2021-08-11] MEDS ORDERED: Potassium Chlor 20 meq TAB.ER PO ONE (22:27)
[2021-08-12 01:08] LABS: Rapid COVID-19 Molecular Undetected (Undetected)
[2021-08-12 02:43] LABS: Digoxin 1.1 ng/ml (0.8-2.0); TSH Ultra Thyroid Stim Horm 1.08 mcIU/mL (0.34-5.60)
[2021-08-12] MEDS: Amiodarone 360 MG IVPREMIX 360 MG/200 ML BAG IV SCH (03:51)
[2021-08-12 04:07] LABS: ABS Basophils 0.1 10^3/ul (0-0.2); ABS Eosinophils 0.1 10^3/ul (0-0.6); ABS Lymphocytes 1.8 10^3/ul (1.0-4.8); ABS Monocytes 0.6 10^3/ul (0-0.8); ABS Neutrophils 5.5 10^3/ul (1.5-7.7); Eosinophil % 1.2 %; Hematocrit 36 % (42-52); Hemoglobin 12.1 g/dL (14.0-18.0); Lymphocyte % 22.5 %; Mean Corpuscular HGB Conc 34 g/dL (31-36); Mean Corpuscular Hemoglobin 30 pg (27-31); Mean Corpuscular Volume 89 fL (80-94); Mean Platelet Volume 8.8 fL (7.4-10.4); Nucleated Red Blood Cells % 0.1; Platelet Count 189 10^3/uL (150-450); Red Blood Count 4.03 10^6 /uL (4.18-5.48); Red Cell Distribution Width 13 % (10-15); White Blood Count 8.1 10^3/uL (3.5-10.8)
[2021-08-12 04:31] LABS: Calcium 9.2 mg/dL (8.6-10.3); Potassium 4.2 mmol/L (3.5-5.0)
[2021-08-12 05:08] LABS: Troponin I 0.62 ng/mL (<0.03)
[2021-08-12 07:21] LABS: Troponin I 0.58 ng/mL (<0.03)
[2021-08-12] MEDS ORDERED: Perflutren Lipid Microsphere 3 ML VIAL ONE (08:53)
[2021-08-12] MEDS ORDERED: APREMILAST 30 MG PO SCH (09:00)
[2021-08-12] MEDS ORDERED: Aspirin EC 81 mg TAB.EC (enteric coated) PO SCH (09:00)
[2021-08-12 10:47] LABS: Magnesium 2.1 mg/dL (1.9-2.7)
[2021-08-12 10:52] LABS: Phosphorus 3.7 mg/dL (2.5-5.0)
[2021-08-12 17:58] VITALS: BP 131/70
[2021-08-12] MEDS ORDERED: METFORMIN 750 MG PO SCH (21:00)
== END 2021-08-12 15:00 | disposition home or self-care (01) | DRG 309 ==
LOC: ED 20:16 → EDHOLD 22:21 → SUATTDRO 22:21 → ICU 08-12 00:07
PROVIDERS: ADMIT Student in an Organized Health Care Education/Training Program; ATTEND Internal Medicine